=== PATIENT | male | born 1950 | race Caucasian/White ===

== ENCOUNTER 2017-02-18 11:52 | Emergency (ER) | payer MEDICARE, MEDICAID ==
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
--- NOTE | 2017-02-19 08:49 | Diagnostic Imaging Report ---
Head CT without intravenous contrast Indication: Head injury, rule out bleed Comparison: Head CT on 01/28/2015 Technique: Axial images were obtained from the vertex to the skull base without IV contrast. Coronal reconstructions were made. Total DLP: [id number], [id number] FINDINGS: Images of the brain obtained without contrast demonstrate no evidence of an acute hemorrhage. Atrophy is noted. Moderate supratentorial white matter disease is noted. The ventricles and basal cisterns are patent. No mass effect or midline shift. No evidence of a skull fracture or focal soft tissue swelling. There is mild mucosal thickening in paranasal sinuses. There is high density seen within the left globe as seen on prior exam. IMPRESSION: No evidence of acute intracranial hemorrhage. Moderate supratentorial white matter disease which is nonspecific and may be due to chronic microvessel ischemia. Atrophy. High density within the left globe as seen on prior examination. Findings may have been due to previous silicone injection procedure for possible old hemorrhage. Please correct clinically.
== END 2017-02-18 15:10 | disposition home or self-care (01) ==
LOC: ER 11:52
DX: S01.01XA Laceration without foreign body of scalp, initial encounter (principal); F17.200 Nicotine dependence, unspecified, uncomplicated; Z88.8 Allergy status to other drugs, medicaments and biological substances; W19.XXXA Unspecified fall, initial encounter; Y93.89 Activity, other specified; Y92.012 Bathroom of single-family (private) house as the place of occurrence of the external cause; Y99.8 Other external cause status
CPT/HCPCS: 12002; 70450-TC; J2001; Z7502; Z7610